=== PATIENT | female | born 1925 | race African-American/Black ===

== ENCOUNTER → 2017-01-10 | Outpatient (CLI) | payer MEDICARE, OTHER ==
[~2017-01-10] VITALS: Ht 157.5 cm; Wt 91.0 kg
[~2017-01-10] MED LIST: AMLO-511 PO; ASPI-556 PO; ATOR20TA86 PO; BRINOS OP; BUDE0.5A3 NEB; DOCU250C28 PO; FLUT16H NASAL; FLUT1AER PO; FURO20 PO; ISOS60TA4 PO; METF-514 PO; MONT10TA21 PO; OMEP10 PO; TYL3 PO
[2017-01-10 11:54] VITALS: BP 156/85
== END | disposition home or self-care (01) ==
LOC: SRCNTR 11:35
PROVIDERS: ATTEND Internal Medicine Critical Care Medicine
DX: E11.9 Type 2 diabetes mellitus without complications (principal); E78.2 Mixed hyperlipidemia; E66.9 Obesity, unspecified; J44.1 Chronic obstructive pulmonary disease with (acute) exacerbation; K21.9 Gastro-esophageal reflux disease without esophagitis; I10 Essential (primary) hypertension; E78.5 Hyperlipidemia, unspecified
CPT/HCPCS: G0463